=== PATIENT | male | born 1950 | race Caucasian/White ===

== ENCOUNTER 2019-01-16 10:47 | Emergency (ER) | payer MEDICARE, MEDICAID, SELFPAY ==
--- NOTE | 2019-01-16 10:58 | ED.BACK ---
HPI - Back Pain/Injury <Lyn EagleDANNY - Last Filed: 01/16/19 21:36> General Chief Complaint: Back Pain/Injury Stated Complaint: LOWER BACK PAIN DOWN RT LEG Time Seen by Provider: 01/16/19 11:36 Source: patient Mode of arrival: ambulatory Limitations: no limitations History of Present Illness HPI Narrative: 68-year-old male with a history of sciatica, herniated disc, and diabetes, presents emergency department today complaining of constant right gluteal pain starting gradually 3 days ago with associated right leg numbness and tingling. States pain is an aching 9/ 10 worse with walking and standing and better with rest. Patient states that he rides his bicycle daily. Denies loss of bowel or bladder control, denies right leg weakness, or left leg symptoms, denies trauma, and denies fever. Patient also complains of substernal intermittent in 3/10 chest pressure that occurs almost daily for the past month. States pain occurs while laying down at night and lasts 1-3 minutes, does not radiate. Denies shortness of breath, dizziness, headaches, diaphoresis, abdominal pain, epigastric burning, chest pain that radiates to her back, changes in bowel or bladder elimination, or difficulty with balance. He also states that his blood sugars have been a little elevated the past few days with the highest being 170. Denies history of kidney stones for cardiac problems. MD Complaint: back pain Onset (ago): day(s) Duration: constant Similar Symptoms Previously: No Location: right lower back Severity: moderate Quality: burning Radiation: right leg Severity scale (1-10): 9 Relieving factors: immobilization Exacerbating factors: walking Related Data Home Medications Medication Instructions Recorded Confirmed Nabumetone (#RELAFEN (OFF MARKET)) 100 mg PO BID #0 10/28/12 [MULTI VIT] #0 10/28/12 metformin [Glucophage] 1,000 mg PO BID #0 10/28/12 atorvastatin 40 mg PO DAILY 01/16/19 01/16/19 cyclobenzaprine 01/16/19 finasteride 5 mg PO DAILY 01/16/19 01/16/19 metoprolol succinate 50 mg PO DAILY 01/16/19 01/16/19 nitroglycerin 0.4 mg SUBLINGUAL PRN PRN 01/16/19 01/16/19 Previous Rx's Medication Instructions Recorded methocarbamol 500 mg PO TID #10 tab 01/16/19 Review of Systems <DANNY Babin - Last Filed: 01/16/19 21:36> Review of Systems REVIEW OF SYSTEMS: GENERAL: Denies fever, chills, malaise, or wt. loss. HENT: No head trauma, hearing loss, rhinorrhea, epistaxis, sinus pressure, sore throat, or dysphagia. EYES: No loss of vision, double vision, eye pain, or irritation. CARDIOVASCULAR: See HPI, complains of chest pain. RESPIRATORY: No shortness of breath, cough, or wheeze. GASTROINTESTINAL: No change in appetite, nausea, vomiting, stool changes, or melena. GENITOURINARY: No flank pain, urinary incontinence, hesitancy, frequency, or dysuria. No vaginal discharge or dyspareunia. MUSCULOSKELETAL: See HPI, complains of back pain. INTEGUMENTARY: No rash, lesions, or pruritus. NEURO: See HPI, complains of decreased sensation. PSYCH: No behavior or mood changes. ENDOCRINOLOGY: No hair loss of temperature intolerance. HEMATOLOGY: No easy bruising. LYMPHATIC: No lymphadenopathy. PFSH <DANNY Babin - Last Filed: 01/16/19 21:36> Medical History Diabetes (Chronic) Social History Smoking Status: Never smoker Social History Smoking Status: Never smoker Exam <DANNY Babin - Last Filed: 01/16/19 21:36> Initial Vital Signs Initial Vital Signs: Vital Signs Temperature 98.4 F 01/16/19 11:05 Pulse Rate 85 01/16/19 11:05 Respiratory Rate 17 01/16/19 11:05 Blood Pressure 159/99 H 01/16/19 11:05 Pulse Oximetry 94 01/16/19 11:05 PHYSICAL EXAMINATION: GENERAL: Alert, and cooperative Answers questions promptly and appropriately. Vital signs noted. HENT: Normocephalic, atraumatic. Pharynx without erythema. EYES: PERRLA, Conjunctiva pink, sclera white, no periorbital swelling. LYMPH: No lymphadenopathy. CHEST: Normal to inspection and without deformities. No tenderness to palpation. CARDIOVASCULAR: S1 and S2 sounds normal. Regular rate and rhythm, no murmurs, clicks, or bruits. No pedal edema. RESPIRATORY: Normal respiratory rate, trachea midline, airway patent. No stridor, nasal flaring or accessory muscle use. Lungs are clear in all ferrell without wheeze, rhonchi, or crackles. GASTROINTESTINAL: Bowel sounds normoactive. Abdomen is soft and non-tender. No organomegaly. MUSCULOSKELETAL:Equal tone and mass bilaterally. No spinal tenderness or deformities. EXTREMITIES: Tenderness to palpation of right gluteal muscle. Decreased sharp and light touch sensation to the lateral aspect of right thigh and shaffer. Full range of motion and 5/5 strength to lower and upper extremitities bilaterally. CMS intact, pedal pulses 2+. Positive straight leg test. SKIN: Warm, dry, soft, appropriate color for ethnicity. No lesions, rashes, or wounds. NEURO: Alert and Oriented X 3. Good coordination. No ataxia, or sensory deficits, or cognitive issues. PSYCH: Appropriate affect and mood. <Kirill Childers DO - Last Filed: 01/18/19 07:21> Initial Vital Signs Initial Vital Signs: Vital Signs Temperature 98.4 F 01/16/19 11:05 Pulse Rate 85 01/16/19 11:05 Respiratory Rate 17 01/16/19 11:05 Blood Pressure 159/99 H 01/16/19 11:05 Pulse Oximetry 94 01/16/19 11:05 Course <DANNY Babin - Last Filed: 01/16/19 21:36> Orders Ordered: Discontinued Medications Ketorolac Tromethamine (Toradol) 15 mg IV NOW ONE Stop: 01/16/19 11:34 Last Admin: 01/16/19 12:09 Dose: 15 mg Reevaluation(s) Reevaluation #1: Patient states pain decreased after administration of Toradol. Consultations Consultation #1: Patient staffed with Dr. Childers whom agrees with plan of care. Vital Signs - 8 hr 01/16/19 11:05 Temperature 98.4 F Pulse Rate 85 Respiratory Rate 17 Blood Pressure 159/99 H Pulse Oximetry 94 <Kirill Childers DO - Last Filed: 01/18/19 07:21> Orders Ordered: Discontinued Medications Ketorolac Tromethamine (Toradol) 15 mg IV NOW ONE Stop: 01/16/19 11:34 Last Admin: 01/16/19 12:09 Dose: 15 mg Vital Signs - 8 hr 01/16/19 11:05 Temperature 98.4 F Pulse Rate 85 Respiratory Rate 17 Blood Pressure 159/99 H Pulse Oximetry 94 MDM - Back Pain/Injury <Lyn EagleDANNY - Last Filed: 01/16/19 21:36> Lab Data Attestation: I reviewed the patient's lab results. Result diagrams: 01/16/19 11:48 01/16/19 11:48 Lab Results 01/16/19 01/16/19 Range/Units 11:48 11:48 WBC 9.9 (4.5-11.0) X10^3/uL RBC 5.13 (4.5-5.9) X10^6/uL Hgb 15.9 (13.5-17.5) g/dL Hct 45.8 (41-53) % MCV 89.2 (80-100) fL MCH 30.9 (26-34) PG MCHC 34.7 (30-36) % RDW 13.1 (11.6-14.8) % Plt Count 297 (150-400) X10^3/uL Neut % (Auto) 64.1 (50-75) % Lymph % (Auto) 23.9 L (25-40) % [place] % (Auto) 7.5 (3-14) % Eos % (Auto) 3.8 (2-4) % Baso % (Auto) 0.7 (0-2) % Neut # (Auto) 6400 (5879-7163) /uL Lymph # (Auto) 2400 (4838-0655) /uL [place] # (Auto) 700 (0-900) /uL Eos # (Auto) 400 (0-450) /uL Baso # (Auto) 100 (0-100) /uL Sodium 137 (137-145) mmol/L Potassium 4.4 (3.4-5.1) mmol/L Chloride 104 (98-107) mmol/L Carbon Dioxide 24 (22-32) mmol/L BUN 30 H (9-20) mg/dL Creatinine 1.40 H (0.66-1.25) mg/dL Estimated GFR 50.2 L (>60) mL/min BUN/Creatinine Ratio 21.4 (6-22) Glucose 268 H (80-110) mg/dL Calcium 9.4 (8.4-10.2) mg/dL Total Bilirubin 0.6 (0.2-1.3) mg/dL AST 36 (17-59) IU/L ALT 51 (21-72) IU/L Alkaline Phosphatase 84 (38-126) U/L Total Creatine Kinase 103 (55-170) U/L CK-MB (CK-2) 2.24 (<2.37) ng/mL CK-MB (CK-2) Rel Index 2.2 (1.5-5.0) % Troponin I < 0.012 (0.01-0.034) ng/mL Total Protein 7.1 (6.3-8.2) g/dL Albumin 4.4 (3.5-5.0) g/dL Globulin 2.7 (1.7-4.1) g/dL Albumin/Globulin Ratio 1.6 (1.0-2.8) Lipase 183 (23-300) U/L Urine Dip Bedside Urine Glucose 1000 mg/dl Bedside Urine Bilirubin - Negative Bedside Urine Ketone - Negative Urine Specific [place] 1.025 Bedside Urine Occult Blood - Negative Bedside Urine pH 5.5 Bedside Urine Protein +/- 15 Bedside Urine Urobilinogen - Negative Bedside Urine Nitrite - Negative Bedside Urine Leukocytes +/- 15 Esterase Imaging Data Chest x-ray: Radiologist's impression: [address] [id number] XRay Report Signed Patient: Joel Glover#: [id number] : 1950Acct:[id number] Age/Sex: 68 / MDate of Service: 01/16/19 Loc: ED Accession Number: [id number] Procedure: XR chest 1V Ordering Provider: Lyn Eagle PROCEDURE: XR CHEST 1V INDICATIONS: Intermittent episodes of substernal chest pressure x 1 month TECHNIQUE: One view of the chest was acquired. COMPARISON: None. FINDINGS: Surgical changes and devices: Post surgical changes of the lower cervical spine are noted. Lungs and pleura: Lungs are clear. Mild areas of increased density are evident at the left lung base. No additional areas of consolidation are appreciated. Mediastinum: Mediastinal contours appear normal. Heart size is normal. Bones and chest wall: No suspicious bony lesions. Overlying soft tissues appear unremarkable. IMPRESSION: Possible left basilar consolidation may represent atelectasis versus pneumonia. Please correlate clinically. Dictated by: Karel Nair M.D. on 01/16/2019 at 11:32 Approved by: Karel Nair M.D. on 01/16/2019 at 11:32 Lumbar XR: Radiologist's impression: [address] [address] XRay Report Signed Patient: Joel GloverMR#: [id number] : 1950Acct:[id number] Age/Sex: 68 / MDate of Service: 01/16/19 Loc: ED Accession Number: [id number] Procedure: XR lumbar spine 2-3V Ordering Provider: Lyn Eagle PROCEDURE: XR LUMBAR SPINE 2-3V INDICATIONS: R leg numbness, lumbar px, hx herniated disc TECHNIQUE: 3 views of the lumbar spine were acquired. COMPARISON: [facility], , SPINE LUMB 2 OR 3VW, 12/02/2013, 16:01. FINDINGS: Bones: There are 5 lumbar-type vertebral bodies. The lowest intervertebral disk space is designated as L5-S1. The vertebral body heights are well-maintained without evidence to suggest an acute compression fracture. The bone mineralization is within normal limits. Severe multilevel degenerative changes of the lumbar spine have progressed since the previous examination, particularly noted at the levels of L1-L2 and L4-L5 with increasing disc height loss, endplate sclerosis, disc osteophyte complex, facet arthropathy. There is also been prominent interval increase in degree of facet arthropathy throughout the lumbar spine. Straightening of the normal lumbar lordosis is present. There is grade 1 anterolisthesis of L3 on L4 and grade one retrolisthesis of L4 and L5. Soft tissues: The soft tissues of the imaged abdomen and pelvis are within normal limits. IMPRESSION: 1. No acute abnormality the lumbar spine is evident. 2. Severe degenerative changes of the lumbar spine have significantly progressed since 2013. Dictated by: Karel Nair M.D. on 01/16/2019 at 11:32 Approved by: Karel Nair M.D. on 01/16/2019 at 11:36 ECG Data Attestation: I personally reviewed and interpreted this ECG as follows: Interpretation: Normal sinus rhythm, rate 83 beats per minute, slight left axis deviation, NE interval 168, QTC 390, no ST elevation or ST depression. T-wave inversion noted in V5 however this was also present on past EKG done on 10/29/2012, no changes from past EKG. Also evaluated by Dr. Childers. [facility] Narrative Medical decision making narrative: Patient's pain is most likely cause some sciatica from degenerative changes or herniated disc as reported by x-ray, past medical history, positive straight leg test, description of pain. Little concern for cauda equina due to decreased sensation on 1 lower extremity only, no saddle paresthesias, no loss of bowel or bladder control. Less likely renal calculi due to lack of other symptoms. Discussed with patient has steroids are probably not a good option due to history of diabetes. Discussed with patient and/or renal function is he is or, patient stated that this was the current problem and he will follow up with primary care provider. Chest x-ray showed possible consolidation however there was no clinical evidence of pneumonia such as fevers, shortness of breath, weakness, fatigue. Patient instructed to follow up with primary care provider for further testing (MRI), and referral to physical therapy if needed. Patient given muscle relaxers and explained that these will decrease the his alertness, instructed not to drive with these medications. <Kirill Childers, DO - Last Filed: 01/18/19 07:21> Lab Data Lab Results 01/16/19 01/16/19 Range/Units 11:48 11:48 WBC 9.9 (4.5-11.0) X10^3/uL RBC 5.13 (4.5-5.9) X10^6/uL Hgb 15.9 (13.5-17.5) g/dL Hct 45.8 (41-53) % MCV 89.2 (80-100) fL MCH 30.9 (26-34) PG MCHC 34.7 (30-36) % RDW 13.1 (11.6-14.8) % Plt Count 297 (150-400) X10^3/uL Neut % (Auto) 64.1 (50-75) % Lymph % (Auto) 23.9 L (25-40) % [place] % (Auto) 7.5 (3-14) % Eos % (Auto) 3.8 (2-4) % Baso % (Auto) 0.7 (0-2) % Neut # (Auto) 6400 (8494-6279) /uL Lymph # (Auto) 2400 (7156-4525) /uL [place] # (Auto) 700 (0-900) /uL Eos # (Auto) 400 (0-450) /uL Baso # (Auto) 100 (0-100) /uL Sodium 137 (137-145) mmol/L Potassium 4.4 (3.4-5.1) mmol/L Chloride 104 (98-107) mmol/L Carbon Dioxide 24 (22-32) mmol/L BUN 30 H (9-20) mg/dL Creatinine 1.40 H (0.66-1.25) mg/dL Estimated GFR 50.2 L (>60) mL/min BUN/Creatinine Ratio 21.4 (6-22) Glucose 268 H (80-110) mg/dL Calcium 9.4 (8.4-10.2) mg/dL Total Bilirubin 0.6 (0.2-1.3) mg/dL AST 36 (17-59) IU/L ALT 51 (21-72) IU/L Alkaline Phosphatase 84 (38-126) U/L Total Creatine Kinase 103 (55-170) U/L CK-MB (CK-2) 2.24 (<2.37) ng/mL CK-MB (CK-2) Rel Index 2.2 (1.5-5.0) % Troponin I < 0.012 (0.01-0.034) ng/mL Total Protein 7.1 (6.3-8.2) g/dL Albumin 4.4 (3.5-5.0) g/dL Globulin 2.7 (1.7-4.1) g/dL Albumin/Globulin Ratio 1.6 (1.0-2.8) Lipase 183 (23-300) U/L Urine Dip Bedside Urine Glucose 1000 mg/dl Bedside Urine Bilirubin - Negative Bedside Urine Ketone - Negative Urine Specific [place] 1.025 Bedside Urine Occult Blood - Negative Bedside Urine pH 5.5 Bedside Urine Protein +/- 15 Bedside Urine Urobilinogen - Negative Bedside Urine Nitrite - Negative Bedside Urine Leukocytes +/- 15 Esterase Discharge Plan Departure Patient Disposition: Home Clinical Impression: Sciatica Qualifiers: Laterality: right Qualified Code(s): M54.31 - Sciatica, right side Back pain Qualifiers: Back pain location: low back pain Chronicity: unspecified Back pain laterality: right Sciatica presence: with sciatica Sciatica laterality: sciatica of right side Qualified Code(s): M54.41 - Lumbago with sciatica, right side Discharge Date/Time: 01/16/19 13:17 Interventions: ED Discharge Assessment Last Done: 01/16/19 13:16 Instructions: DI for Back Pain With Sciatica Prescriptions: New methocarbamol 500 mg tablet 500 mg PO TID Qty: 10 RF: 0 No Action metformin [Glucophage] 1,000 MG tablet 1,000 mg PO BID Qty: 0 RF: 0 Nabumetone (#RELAFEN (OFF MARKET)) 100 mg PO BID Qty: 0 RF: 0 [MULTI VIT] Qty: 0 RF: 0 atorvastatin 40 mg tablet 40 mg PO DAILY RF: 0 metoprolol succinate 50 mg tablet extended release 24 hr 50 mg PO DAILY RF: 0 nitroglycerin 0.4 mg tablet, sublingual 0.4 mg sublingual PRN PRN (Reason: Chest Pain) RF: 0 finasteride 5 mg tablet 5 mg PO DAILY RF: 0 cyclobenzaprine 5 mg tablet RF: 0 <Kirill Childers DO - Last Filed: 01/18/19 07:21> [facility] ED Attending Charlee Attestation: I was available for consultation during this patient's emergency department encounter
[2019-01-16 11:05] VITALS: BP 159/99; PULSE 85; RESP 17; TEMP 36.9; O2SAT 94; BMI 25.7
--- NOTE | 2019-01-16 11:28 | DI.RAD.S_ITS ---
PROCEDURE: XR LUMBAR SPINE 2-3V INDICATIONS: R leg numbness, lumbar px, hx herniated disc TECHNIQUE: 3 views of the lumbar spine were acquired. COMPARISON: [facility], , SPINE LUMB 2 OR 3VW, 12/02/2013, 16:01. FINDINGS: Bones: There are 5 lumbar-type vertebral bodies. The lowest intervertebral disk space is designated as L5-S1. The vertebral body heights are well-maintained without evidence to suggest an acute compression fracture. The bone mineralization is within normal limits. Severe multilevel degenerative changes of the lumbar spine have progressed since the previous examination, particularly noted at the levels of L1-L2 and L4-L5 with increasing disc height loss, endplate sclerosis, disc osteophyte complex, facet arthropathy. There is also been prominent interval increase in degree of facet arthropathy throughout the lumbar spine. Straightening of the normal lumbar lordosis is present. There is grade 1 anterolisthesis of L3 on L4 and grade one retrolisthesis of L4 and L5. Soft tissues: The soft tissues of the imaged abdomen and pelvis are within normal limits. IMPRESSION: 1. No acute abnormality the lumbar spine is evident. 2. Severe degenerative changes of the lumbar spine have significantly progressed since 2013. Dictated by: Karel Nair M.D. on 01/16/2019 at 11:32 Approved by: Karel Nair M.D. on 01/16/2019 at 11:36
--- NOTE | 2019-01-16 11:32 | DI.RAD.S_ITS ---
PROCEDURE: XR CHEST 1V INDICATIONS: Intermittent episodes of substernal chest pressure x 1 month TECHNIQUE: One view of the chest was acquired. COMPARISON: None. FINDINGS: Surgical changes and devices: Post surgical changes of the lower cervical spine are noted. Lungs and pleura: Lungs are clear. Mild areas of increased density are evident at the left lung base. No additional areas of consolidation are appreciated. Mediastinum: Mediastinal contours appear normal. Heart size is normal. Bones and chest wall: No suspicious bony lesions. Overlying soft tissues appear unremarkable. IMPRESSION: Possible left basilar consolidation may represent atelectasis versus pneumonia. Please correlate clinically. Dictated by: Karel Nair M.D. on 01/16/2019 at 11:32 Approved by: Karel Nair M.D. on 01/16/2019 at 11:32
--- NOTE | 2019-01-16 11:48 | ED_ITS ---
HPI - Back Pain/Injury <Lyn EagleDANNY - Last Filed: 01/16/19 21:36> General Chief Complaint: Back Pain/Injury Stated Complaint: LOWER BACK PAIN DOWN RT LEG Time Seen by Provider: 01/16/19 11:36 Source: patient Mode of arrival: ambulatory Limitations: no limitations History of Present Illness HPI Narrative: 68-year-old male with a history of sciatica, herniated disc, and diabetes, presents emergency department today complaining of constant right gluteal pain starting gradually 3 days ago with associated right leg numbness and tingling. States pain is an aching 9/ 10 worse with walking and standing and better with rest. Patient states that he rides his bicycle daily. Denies l oss of bowel or bladder control, denies right leg weakness, or left leg symptoms, denies trauma, and denies fever. Patient also complains of substernal intermittent in 3/10 chest pressure that occurs almost daily for the past month. States pain occurs while laying down at night and lasts 1-3 minutes, does not radiate. Denies shortness of breath, dizziness, headaches, diaphoresis, abdominal pain, epigastric burning, chest pain that radiates to her back, changes in bowel or bladder elimination, or difficulty with balance. He also states that his blood sugars have been a little elevated the past few days with the highest being 170. Denies history of kidney stones for cardiac problems. MD Complaint: back pain Onset (ago): day(s) Duration: constant Similar Symptoms Previously: No Location: right lower back Severity: moderate Quality: burning Radiation: right leg Severity scale (1-10): 9 Relieving factors: immobilization Exacerbating factors: walking Related Data Home Medications Medication Instructions Recorded Confirmed Nabumetone (#RELAFEN (OFF MARKET)) 100 mg PO BID #0 10/28/12 [MULTI VIT] #0 10/28/12 metformin [Glucophage] 1,000 mg PO BID #0 10/28/12 atorvastatin 40 mg PO DAILY 01/16/19 01/16/19 cyclobenzaprine 01/16/19 finasteride 5 mg PO DAILY 01/16/19 01/16/19 metoprolol succinate 50 mg PO DAILY 01/16/19 01/16/19 nitroglycerin 0.4 mg SUBLINGUAL PRN PRN 01/16/19 01/16/19 Previous Rx's Medication Instructions Recorded methocarbamol 500 mg PO TID #10 tab 01/16/19 Review of Systems <DANNY Babin - Last Filed: 01/16/19 21:36> Review of Systems REVIEW OF SYSTEMS: GENERAL: Denies fever, chills, malaise, or wt. loss. HENT: No head trauma, hearing loss, rhinorrhea, epistaxis, sinus pressure, sore throat, or dysphagia. EYES: No loss of vision, double vision, eye pain, or irritation. CARDIOVASCULAR: See HPI, complains of chest pain. RESPIRATORY: No shortness of breath, cough, or wheeze. GASTROINTESTINAL: No change in appetite, nausea, vomiting, stool changes, or melena. GENITOURINARY: No flank pain, urinary incontinence, hesitancy, frequency, or dysuria. No vaginal discharge or dyspareunia. MUSCULOSKELETAL: See HPI, complains of back pain. INTEGUMENTARY: No rash, lesions, or pruritus. NEURO: See HPI, complains of decreased sensation. PSYCH: No behavior or mood changes. ENDOCRINOLOGY: No hair loss of temperature intolerance. HEMATOLOGY: No easy bruising. LYMPHATIC: No lymphadenopathy. PFSH <DANNY Babin - Last Filed: 01/16/19 21:36> Medical History Diabetes (Chronic) Social History Smoking Status: Never smoker Social History Smoking Status: Never smoker Exam <DANNY Babin - Last Filed: 01/16/19 21:36> Initial Vital Signs Initial Vital Signs: Vital Signs Temperature 98.4 F 01/16/19 11:05 Pulse Rate 85 01/16/19 11:05 Respiratory Rate 17 01/16/19 11:05 Blood Pressure 159/99 H 01/16/19 11:05 Pulse Oximetry 94 01/16/19 11:05 PHYSICAL EXAMINATION: GENERAL: Alert, and cooperative Answers questions promptly and appropriately. Vital signs noted. HENT: Normocephalic, atraumatic. Pharynx without erythema. EYES: PERRLA, Conjunctiva pink, sclera white, no periorbital swelling. LYMPH: No lymphadenopathy. CHEST: Normal to inspection and without deformities. No tenderness to palpation. CARDIOVASCULAR: S1 and S2 sounds normal. Regular rate and rhythm, no murmurs, clicks, or bruits. No pedal edema. RESPIRATORY: Normal respiratory rate, trachea midline, airway patent. No stridor, nasal flaring or accessory muscle use. Lungs are clear in all ferrell without wheeze, rhonchi, or crackles. GASTROINTESTINAL: Bowel sounds normoactive. Abdomen is soft and non-tender. No organomegaly. MUSCULOSKELETAL:Equal tone and mass bilaterally. No spinal tenderness or deformities. EXTREMITIES: Tenderness to palpation of right gluteal muscle. Decreased sharp and light touch sensation to the lateral aspect of right thigh and shaffer. Full range of motion and 5/5 strength to lower and upper extremitities bilaterally. CMS intact, pedal pulses 2+. Positive straight leg test. SKIN: Warm, dry, soft, appropriate color for ethnicity. No lesions, rashes, or wounds. NEURO: Alert and Oriented X 3. Good coordination. No ataxia, or sensory deficits, or cognitive issues. PSYCH: Appropriate affect and mood. <Kirill Childers DO - Last Filed: 01/18/19 07:21> Initial Vital Signs Initial Vital Signs: Vital Signs Temperature 98.4 F 01/16/19 11:05 Pulse Rate 85 01/16/19 11:05 Respiratory Rate 17 01/16/19 11:05 Blood Pressure 159/99 H 01/16/19 11:05 Pulse Oximetry 94 01/16/19 11:05 Course <DANNY Babin - Last Filed: 01/16/19 21:36> Orders Ordered: Discontinued Medications Ketorolac Tromethamine (Toradol) 15 mg IV NOW ONE Stop: 01/16/19 11:34 Last Admin: 01/16/19 12:09 Dose: 15 mg Reevaluation(s) Reevaluation #1: Patient states pain decreased after administration of Toradol. Consultations Consultation #1: Patient staffed with Dr. Childers whom agrees with plan of care. Vital Signs - 8 hr 01/16/19 11:05 Temperature 98.4 F Pulse Rate 85 Respiratory Rate 17 Blood Pressure 159/99 H Pulse Oximetry 94 <Kirill Childers DO - Last Filed: 01/18/19 07:21> Orders Ordered: Discontinued Medications Ketorolac Tromethamine (Toradol) 15 mg IV NOW ONE Stop: 01/16/19 11:34 Last Admin: 01/16/19 12:09 Dose: 15 mg Vital Signs - 8 hr 01/16/19 11:05 Temperature 98.4 F Pulse Rate 85 Respiratory Rate 17 Blood Pressure 159/99 H Pulse Oximetry 94 MDM - Back Pain/Injury <Lyn BeckmanDANNY morris - Last Filed: 01/16/19 21:36> Lab Data Attestation: I reviewed the patient's lab results. Result diagrams: 01/16/19 11:48 01/16/19 11:48 Lab Results 01/16/19 01/16/19 Range/Units 11:48 11:48 WBC 9.9 (4.5-11.0) X10^3/uL RBC 5.13 (4.5-5.9) X10^6/uL Hgb 15.9 (13.5-17.5) g/dL Hct 45.8 (41-53) % MCV 89.2 (80-100) fL MCH 30.9 (26-34) PG MCHC 34.7 (30-36) % RDW 13.1 (11.6-14.8) % Plt Count 297 (150-400) X10^3/uL Neut % (Auto) 64.1 (50-75) % Lymph % (Auto) 23.9 L (25-40) % [place] % (Auto) 7.5 (3-14) % Eos % (Auto) 3.8 (2-4) % Baso % (Auto) 0.7 (0-2) % Neut # (Auto) 6400 (0602-8690) /uL Lymph # (Auto) 2400 (2920-9784) /uL [place] # (Auto) 700 (0-900) /uL Eos # (Auto) 400 (0-450) /uL Baso # (Auto) 100 (0-100) /uL Sodium 137 (137-145) mmol/L Potassium 4.4 (3.4-5.1) mmol/L Chloride 104 (98-107) mmol/L Carbon Dioxide 24 (22-32) mmol/L BUN 30 H (9-20) mg/dL Creatinine 1.40 H (0.66-1.25) mg/dL Estimated GFR 50.2 L (>60) mL/min BUN/Creatinine Ratio 21.4 (6-22) Glucose 268 H (80-110) mg/dL Calcium 9.4 (8.4-10.2) mg/dL Total Bilirubin 0.6 (0.2-1.3) mg/dL AST 36 (17-59) IU/L ALT 51 (21-72) IU/L Alkaline Phosphatase 84 (38-126) U/L Total Creatine Kinase 103 (55-170) U/L CK-MB (CK-2) 2.24 (<2.37) ng/mL CK-MB (CK-2) Rel Index 2.2 (1.5-5.0) % Troponin I < 0.012 (0.01-0.034) ng/mL Total Protein 7.1 (6.3-8.2) g/dL Albumin 4.4 (3.5-5.0) g/dL Globulin 2.7 (1.7-4.1) g/dL Albumin/Globulin Ratio 1.6 (1.0-2.8) Lipase 183 (23-300) U/L Urine Dip Bedside Urine Glucose 1000 mg/dl Bedside Urine Bilirubin - Negative Bedside Urine Ketone - Negative Urine Specific [place] 1.025 Bedside Urine Occult Blood - Negative Bedside Urine pH 5.5 Bedside Urine Protein +/- 15 Bedside Urine Urobilinogen - Negative Bedside Urine Nitrite - Negative Bedside Urine Leukocytes +/- 15 Esterase Imaging Data Chest x-ray: Radiologist's impression: [address] [address] XRay Report Signed Patient: Joel Glover#: [id number] : 1950Acct:[id number] Age/Sex: 68 / MDate of Service: 01/16/19 Loc: ED Accession Number: [id number] Procedure: XR chest 1V Ordering Provider: Lyn Eagle PROCEDURE: XR CHEST 1V INDICATIONS: Intermittent episodes of substernal chest pressure x 1 month TECHNIQUE: One view of the chest was acquired. COMPARISON: None. FINDINGS: Surgical changes and devices: Post surgical changes of the lower cervical spine are noted. Lungs and pleura: Lungs are clear. Mild areas of increased density are evident at the left lung base. No additional areas of consolidation are appreciated. Mediastinum: Mediastinal contours appear normal. Heart size is normal. Bones and chest wall: No suspicious bony lesions. Overlying soft tissues appear unremarkable. IMPRESSION: Possible left basilar consolidation may represent atelectasis versus pneumonia. Please correlate clinically. Dictated by: Karel Nair M.D. on 01/16/2019 at 11:32 Approved by: Karel Nair M.D. on 01/16/2019 at 11:32 Lumbar XR: Radiologist's impression: [address] [address] XRay Report Signed Patient: Joel GloverMR#: [id number] : 1950Acct:[id number] Age/Sex: 68 / MDate of Service: 01/16/19 Loc: ED Accession Number: [id number] Procedure: XR lumbar spine 2-3V Ordering Provider: Lyn Eagle PROCEDURE: XR LUMBAR SPINE 2-3V INDICATIONS: R leg numbness, lumbar px, hx herniated disc TECHNIQUE: 3 views of the lumbar spine were acquired. COMPARISON: [facility], , SPINE LUMB 2 OR 3VW, 12/02/2013, 16:01. FINDINGS: Bones: There are 5 lumbar-type vertebral bodies. The lowest intervertebral disk space is designated as L5-S1. The vertebral body heights are well-maintained without evidence to suggest an acute compression fracture. The bone mineralization is within normal limits. Severe multilevel degenerative changes of the lumbar spine have progressed since the previous examination, particularly noted at the levels of L1-L2 and L4-L5 with increasing disc height loss, endplate sclerosis, disc osteophyte complex, facet arthropathy. There is also been prominent interval increase in degree of facet arthropathy thro ughout the lumbar spine. Straightening of the normal lumbar lordosis is present. There is grade 1 anterolisthesis of L3 on L4 and grade one retrolisthesis of L4 and L5. Soft tissues: The soft tissues of the imaged abdomen and pelvis are within normal limits. IMPRESSION: 1. No acute abnormality the lumbar spine is evident. 2. Severe degenerative changes of the lumbar spine have significantly progressed since 2013. Dictated by: Karel Nair M.D. on 01/16/2019 at 11:32 Approved by: Karel Nair M.D. on 01/16/2019 at 11:36 ECG Data Attestation: I personally reviewed and interpreted this ECG as follows: Interpretation: Normal sinus rhythm, rate 83 beats per minute, slight left axis deviation, [place] interval 168, QTC 390, no ST elevation or ST depression. T-wave inversion noted in V5 however this was also present on past EKG done on 10/29/2012, no changes from past EKG. Also evaluated by Dr. Childers. [facility] Narrative Medical decision making narrative: Patient's pain is most likely cause some sciatica from degenerative changes or herniated disc as reported by x-ray, past medical history, positive straight leg test, description of pain. Little concern for cauda equina due to decreased sensation on 1 lower extremity only, no saddle paresthesias, no loss of bowel or bladder control. Less likely renal calculi due to lack of other symptoms. Discussed with patient has steroids are probably not a good option due to history of diabetes. Discussed with patient and/or renal function is he is or, patient stated that this was the current problem and he will follow up with primary care provider. Chest x-ray showed possible consolidation however there was no clinical evidence of pneumonia such as fevers, shortness of breath, weakness, fatigue. Patient instructed to follow up with primary care provider for further testing (MRI), and referral to physical therapy if needed. Patient given muscle relaxers and explained that these will decrease the his alertness, instructed not to drive with these medications. <Kirill Childers, DO - Last Filed: 01/18/19 07:21> Lab Data Lab Results 01/16/19 01/16/19 Range/Units 11:48 11:48 WBC 9.9 (4.5-11.0) X10^3/uL RBC 5.13 (4.5-5.9) X10^6/uL Hgb 15.9 (13.5-17.5) g/dL Hct 45.8 (41-53) % MCV 89.2 (80-100) fL MCH 30.9 (26-34) PG MCHC 34.7 (30-36) % RDW 13.1 (11.6-14.8) % Plt Count 297 (150-400) X10^3/uL Neut % (Auto) 64.1 (50-75) % Lymph % (Auto) 23.9 L (25-40) % [place] % (Auto) 7.5 (3-14) % Eos % (Auto) 3.8 (2-4) % Baso % (Auto) 0.7 (0-2) % Neut # (Auto) 6400 (2243-2633) /uL Lymph # (Auto) 2400 (9341-9997) /uL [place] # (Auto) 700 (0-900) /uL Eos # (Auto) 400 (0-450) /uL Baso # (Auto) 100 (0-100) /uL Sodium 137 (137-145) mmol/L Potassium 4.4 (3.4-5.1) mmol/L Chloride 104 (98-107) mmol/L Carbon Dioxide 24 (22-32) mmol/L BUN 30 H (9-20) mg/dL Creatinine 1.40 H (0.66-1.25) mg/dL Estimated GFR 50.2 L (>60) mL/min BUN/Creatinine Ratio 21.4 (6-22) Glucose 268 H (80-110) mg/dL Calcium 9.4 (8.4-10.2) mg/dL Total Bilirubin 0.6 (0.2-1.3) mg/dL AST 36 (17-59) IU/L ALT 51 (21-72) IU/L Alkaline Phosphatase 84 (38-126) U/L Total Creatine Kinase 103 (55-170) U/L CK-MB (CK-2) 2.24 (<2.37) ng/mL CK-MB (CK-2) Rel Index 2.2 (1.5-5.0) % Troponin I < 0.012 (0.01-0.034) ng/mL Total Protein 7.1 (6.3-8.2) g/dL Albumin 4.4 (3.5-5.0) g/dL Globulin 2.7 (1.7-4.1) g/dL Albumin/Globulin Ratio 1.6 (1.0-2.8) Lipase 183 (23-300) U/L Urine Dip Bedside Urine Glucose 1000 mg/dl Bedside Urine Bilirubin - Negative Bedside Urine Ketone - Negative Urine Specific [place] 1.025 Bedside Urine Occult Blood - Negative Bedside Urine pH 5.5 Bedside Urine Protein +/- 15 Bedside Urine Urobilinogen - Negative Bedside Urine Nitrite - Negative Bedside Urine Leukocytes +/- 15 Esterase Discharge Plan Departure Patient Disposition: Home Clinical Impression: Sciatica Qualifiers: Laterality: right Qualified Code(s): M54.31 - Sciatica, right side Back pain Qualifiers: Back pain location: low back pain Chronicity: unspecified Back pain laterality: right Sciatica presence: with sciatica Sciatica laterality: sciatica of right side Qualified Code(s): M54.41 - Lumbago with sciatica, right side Discharge Date/Time: 01/16/19 13:17 Interventions: ED Discharge Assessment Last Done: 01/16/19 13:16 Instructions: DI for Back Pain With Sciatica Prescriptions: New methocarbamol 500 mg tablet 500 mg PO TID Qty: 10 RF: 0 No Action metformin [Glucophage] 1,000 MG tablet 1,000 mg PO BID Qty: 0 RF: 0 Nabumetone (#RELAFEN (OFF MARKET)) 100 mg PO BID Qty: 0 RF: 0 [MULTI VIT] Qty: 0 RF: 0 atorvastatin 40 mg tablet 40 mg PO DAILY RF: 0 metoprolol succinate 50 mg tablet extended release 24 hr 50 mg PO DAILY RF: 0 nitroglycerin 0.4 mg tablet, sublingual 0.4 mg sublingual PRN PRN (Reason: Chest Pain) RF: 0 finasteride 5 mg tablet 5 mg PO DAILY RF: 0 cyclobenzaprine 5 mg tablet RF: 0 <Kirill Childers DO - Last Filed: 01/18/19 07:21> [facility] Attending Charlee Attestation: I was available for consultation during this patient's emergency department encounter
[2019-01-16 11:56] LABS: Add Manual Diff / Slide Review NO; Basophils Absolute Auto 100 /uL (0-100); Basophils Percent Auto 0.7 % (0-2); Eosinophils Absolute Auto 400 /uL (0-450); Eosinophils Percent Auto 3.8 % (2-4); Hematocrit 45.8 % (41-53); Hemoglobin 15.9 g/dL (13.5-17.5); Lymphocytes Absolute Auto 2400 /uL (1100-4500); Lymphocytes Percent Auto 23.9 % (25-40); Mean Corpuscular HGB Conc 34.7 % (30-36); Mean Corpuscular Hemoglobin 30.9 PG (26-34); Mean Corpuscular Volume 89.2 fL (80-100); Monocytes Absolute Auto 700 /uL (0-900); Monocytes Percent Auto 7.5 % (3-14); Neutrophils Absolute Auto 6400 /uL (1500-7000); Neutrophils Percent Auto 64.1 % (50-75); Platelet Count 297 X10^3/uL (150-400); Red Blood Cell Count 5.13 X10^6/uL (4.5-5.9); Red Cell Distribution Width 13.1 % (11.6-14.8); White Blood Cell Count 9.9 X10^3/uL (4.5-11.0)
[2019-01-16 12:08] LABS: Alanine Aminotransferase 51 IU/L (21-72); Albumin 4.4 g/dL (3.5-5.0); Albumin Globulin Ratio 1.6 (1.0-2.8); Alkaline Phosphatase 84 U/L (38-126); Aspartate Aminotransferase 36 IU/L (17-59); BUN Creatinine Ratio 21.4 (6-22); Bilirubin Total 0.6 mg/dL (0.2-1.3); Blood Urea Nitrogen 30 mg/dL (9-20); Calcium 9.4 mg/dL (8.4-10.2); Carbon Dioxide 24 mmol/L (22-32); Chloride 104 mmol/L (98-107); Creatine Kinase 103 U/L (55-170); Estimated Glomerular Filt Rate 50.2 mL/min (>60); Globulin 2.7 g/dL (1.7-4.1); Glucose 268 mg/dL (80-110); HEMOLYSIS < 15 (0-50); Lipase 183 U/L (23-300); Potassium 4.4 mmol/L (3.4-5.1); Sodium 137 mmol/L (137-145); Total Protein 7.1 g/dL (6.3-8.2)
[2019-01-16] MEDS: KETOROLAC 60 MG/2 ML VIAL 15 MG IV (12:09)
[2019-01-16 12:21] LABS: Troponin I < 0.012 ng/mL (0.01-0.034)
[2019-01-16 12:24] LABS: CKMB % Relative Index 2.2 % (1.5-5.0); Creatine Kinase MB 2.24 ng/mL (<2.37)
[2019-01-16 12:57] VITALS: BP 150/99; PULSE 82; RESP 19; O2SAT 97
== END 2019-01-16 13:17 | disposition home or self-care (01) ==
PROVIDERS: Emergency Provider Nurse Practitioner
DX: M54.41 Lumbago with sciatica, right side (principal); R07.89 Other chest pain
CPT/HCPCS: 36591; 71045; 72100; 80053; 81003; 82550; 82553; 83690; 84484; 85025; 93005; 96374; 99282; 99285; J1885

== ENCOUNTER → 2019-06-23 12:38 | Outpatient (CLI) | payer MEDICARE, MEDICAID, SELFPAY ==
--- NOTE | 2019-06-23 | DI.RAD.S_ITS ---
PROCEDURE: XR SHOULDER LT MIN 2V INDICATIONS: SHOULDER PAIN (L) TECHNIQUE: 3 views of the shoulder were acquired. COMPARISON: None. FINDINGS: Bones: No fractures or dislocations. No suspicious bony lesions. Visualized ribs appear intact. There is eloz-wh-hkahxssi degenerative joint disease a clinical correlation glenohumeral joint. Probable small intra-articular body. Soft tissues: No suspicious soft tissue calcifications. IMPRESSION: 1. Emac-st-qxutdwze degenerative joint disease. 2. Possible small intra-articular body. Dictated by: Petty Caballero M.D. on 06/23/2019 at 18:35 Approved by: Petty Caballero M.D. on 06/23/2019 at 18:37
--- NOTE | 2019-06-23 | DI.RAD.S_ITS ---
PROCEDURE: XR CHEST 2V INDICATIONS: dyspnea TECHNIQUE: 2 views of the chest were acquired. COMPARISON: [facility], CR, XR CHEST 1V, 01/16/2019, 11:39. FINDINGS: Surgical changes and devices: There is lower cervical spine fusion. Lungs and pleura: Lungs are clear. No pleural effusions or pneumothorax. Mediastinum: Mediastinal contours are normal. Heart size is normal. Bones and chest wall: No suspicious bony abnormalities. Soft tissues appear unremarkable. IMPRESSION: No acute cardiopulmonary disease. Dictated by: Petty Caballero M.D. on 06/23/2019 at 14:01 Approved by: Petty Caballero M.D. on 06/23/2019 at 14:02
== END ==
PROVIDERS: PCP Family Medicine; Visit Provider Nurse Practitioner Family
DX: R06.00 Dyspnea, unspecified (principal); M25.512 Pain in left shoulder; M19.012 Primary osteoarthritis, left shoulder
CPT/HCPCS: 71046; 73030